=== PATIENT | female | born 1975 | race Caucasian/White ===

== ENCOUNTER → 2023-10-04 06:36 | Outpatient (REF) | payer OTHER, SELFPAY | LOC: HWWDC 06:36 | PROVIDERS: ATTENDING PHYSICIAN Nurse Practitioner Family | DX: Z12.31 Encounter for screening mammogram for malignant neoplasm of breast (principal) | CPT/HCPCS: 77063; 77067 ==

== ENCOUNTER 2025-01-22 06:26 | Day surgery (SDC) | payer OTHER, SELFPAY | END 2025-01-22 14:53 | disposition home or self-care (01) | LOC: GI 06:26 | PROVIDERS: ATTENDING PHYSICIAN Internal Medicine Gastroenterology | DX: R14.0 Abdominal distension (gaseous) (principal); K22.89 Other specified disease of esophagus; K31.7 Polyp of stomach and duodenum; K31.89 Other diseases of stomach and duodenum; K20.90 Esophagitis, unspecified without bleeding | CPT/HCPCS: 43239; 88305; 88342 ==

== ENCOUNTER → 2025-01-29 06:46 | Outpatient (REF) | payer OTHER, SELFPAY | LOC: RAD 06:46 | PROVIDERS: ATTENDING PHYSICIAN Internal Medicine Gastroenterology; FAMILY PHYSICIAN Family Medicine | DX: R14.0 Abdominal distension (gaseous) (principal) | CPT/HCPCS: 76700 ==